=== PATIENT | female | born 1945 | race Two or more races ===

== ENCOUNTER 2018-01-24 10:09 | Outpatient (CLI) | payer OTHER | END 2018-01-24 11:10 | disposition home or self-care (01) | LOC: MAMO-SONO 10:09 | DX: Z12.31 Encounter for screening mammogram for malignant neoplasm of breast (principal); Z87.898 Personal history of other specified conditions; R92.0 Mammographic microcalcification found on diagnostic imaging of breast ==

== ENCOUNTER 2018-01-30 09:43 | Outpatient (CLI) | payer OTHER | END 2018-01-30 09:55 | disposition home or self-care (01) | LOC: RAD 501 09:43 | DX: D49.2 Neoplasm of unspecified behavior of bone, soft tissue, and skin (principal) ==

== ENCOUNTER → 2018-04-10 | Outpatient (CLI) | payer OTHER | END | disposition home or self-care (01) | LOC: RAD 501 11:17 | DX: D49.2 Neoplasm of unspecified behavior of bone, soft tissue, and skin (principal) ==

== ENCOUNTER 2018-04-18 09:39 | Outpatient (CLI) | payer OTHER | END 2018-04-18 09:53 | disposition home or self-care (01) | LOC: NUCLEAR 09:39 | DX: M81.0 Age-related osteoporosis without current pathological fracture (principal) ==

== ENCOUNTER 2018-05-20 11:34 | Outpatient (CLI) | payer OTHER | END 2018-05-20 15:00 | disposition home or self-care (01) | LOC: LAB 11:34 | DX: E56.1 Deficiency of vitamin K (principal) ==

== ENCOUNTER 2018-08-28 10:02 | Outpatient (CLI) | payer OTHER | END 2018-08-28 10:18 | disposition home or self-care (01) | LOC: MRI 10:02 | DX: D49.2 Neoplasm of unspecified behavior of bone, soft tissue, and skin (principal) | CPT/HCPCS: 73721 ==

== ENCOUNTER 2018-11-06 12:32 | Outpatient (CLI) | payer OTHER | END 2018-11-06 16:54 | disposition home or self-care (01) | LOC: RAD 12:32 | DX: M25.551 Pain in right hip (principal); M25.561 Pain in right knee ==

== ENCOUNTER → 2018-11-20 10:28 | Outpatient (CLI) | payer OTHER | END | disposition home or self-care (01) | LOC: LAB 10:28 | DX: R31.0 Gross hematuria (principal); R31.9 Hematuria, unspecified ==

== ENCOUNTER → 2018-11-25 | Outpatient (CLI) | payer OTHER | END | disposition home or self-care (01) | LOC: TOM 09:21 | DX: R31.0 Gross hematuria (principal) | CPT/HCPCS: 74177; Q9965 ==

== ENCOUNTER 2019-01-27 10:24 | Outpatient (CLI) | payer OTHER | END 2019-01-27 10:29 | disposition home or self-care (01) | LOC: RAD 10:24 | DX: D49.2 Neoplasm of unspecified behavior of bone, soft tissue, and skin (principal) ==

== ENCOUNTER 2019-02-28 10:02 | Outpatient (CLI) | payer OTHER | END 2019-02-28 10:04 | disposition home or self-care (01) | LOC: MRI 10:02 | DX: M25.551 Pain in right hip (principal) | CPT/HCPCS: 73718 ==

== ENCOUNTER 2019-04-15 08:56 | Outpatient (CLI) | payer OTHER | END 2019-04-15 09:03 | disposition home or self-care (01) | LOC: LAB 08:56 | DX: E55.9 Vitamin D deficiency, unspecified (principal); M85.88 Other specified disorders of bone density and structure, other site; M81.8 Other osteoporosis without current pathological fracture; E56.1 Deficiency of vitamin K; E88.89 Other specified metabolic disorders ==

== ENCOUNTER 2019-04-16 10:17 | Outpatient (CLI) | payer OTHER | END 2019-04-16 10:25 | disposition home or self-care (01) | LOC: NUCLEAR 10:17 | DX: M81.0 Age-related osteoporosis without current pathological fracture (principal) ==

== ENCOUNTER 2019-05-01 11:57 | Outpatient (CLI) | payer OTHER | END 2019-05-01 11:58 | disposition home or self-care (01) | LOC: LAB 11:57 | DX: R31.0 Gross hematuria (principal) ==

== ENCOUNTER → 2019-05-01 | Outpatient (CLI) | payer OTHER | END | disposition home or self-care (01) | LOC: SONOGRAMA 12:30 | DX: R31.0 Gross hematuria (principal) ==

== ENCOUNTER 2019-05-12 12:21 | Outpatient (CLI) | payer OTHER | END 2019-05-12 12:26 | disposition home or self-care (01) | LOC: LAB 12:21 | DX: R31.0 Gross hematuria (principal) ==

== ENCOUNTER 2019-05-12 12:47 | Outpatient (CLI) | payer OTHER | END 2019-05-12 14:53 | disposition home or self-care (01) | LOC: MRI 12:47 | DX: M54.5 Low back pain (principal) | CPT/HCPCS: 72148 ==

== ENCOUNTER 2019-05-26 12:44 | Outpatient (CLI) | payer OTHER | END 2019-05-26 15:09 | disposition home or self-care (01) | LOC: RAD 12:44 | DX: D49.2 Neoplasm of unspecified behavior of bone, soft tissue, and skin (principal); M25.551 Pain in right hip ==

== ENCOUNTER 2019-07-23 12:59 | Outpatient (CLI) | payer OTHER | END 2019-07-23 13:04 | disposition home or self-care (01) | LOC: LAB 12:59 | DX: E56.1 Deficiency of vitamin K (principal) ==

== ENCOUNTER 2019-12-03 14:46 | Outpatient (CLI) | payer OTHER | END 2019-12-03 14:54 | disposition home or self-care (01) | LOC: RAD 14:46 | PROVIDERS: ATTEND Orthopaedic Surgery | DX: M54.5 Low back pain (principal) ==

== ENCOUNTER 2020-04-14 11:19 | Outpatient (CLI) | payer OTHER | END 2020-04-14 11:31 | disposition home or self-care (01) | LOC: NUCLEAR 11:19 | PROVIDERS: ATTEND Orthopaedic Surgery | DX: M81.0 Age-related osteoporosis without current pathological fracture (principal) ==

== ENCOUNTER → 2020-04-28 10:37 | Outpatient (CLI) | payer OTHER | END | disposition home or self-care (01) | LOC: LAB 10:37 | PROVIDERS: ATTEND Orthopaedic Surgery | DX: E56.1 Deficiency of vitamin K (principal); M85.88 Other specified disorders of bone density and structure, other site; E21.2 Other hyperparathyroidism; E55.9 Vitamin D deficiency, unspecified; E88.89 Other specified metabolic disorders; M81.8 Other osteoporosis without current pathological fracture ==

== ENCOUNTER 2021-10-26 16:17 | Outpatient (CLI) | payer OTHER | END 2021-10-26 16:22 | disposition home or self-care (01) | LOC: LAB 16:17 | PROVIDERS: ATTEND Orthopaedic Surgery | DX: E55.9 Vitamin D deficiency, unspecified (principal); M85.9 Disorder of bone density and structure, unspecified; E56.1 Deficiency of vitamin K; E21.3 Hyperparathyroidism, unspecified; E88.9 Metabolic disorder, unspecified; M81.8 Other osteoporosis without current pathological fracture ==

== ENCOUNTER 2022-08-28 11:31 | Outpatient (CLI) | payer OTHER | END 2022-08-28 11:38 | disposition home or self-care (01) | LOC: RAD 11:31 | PROVIDERS: ATTEND Orthopaedic Surgery | DX: M25.551 Pain in right hip (principal) ==

== ENCOUNTER 2022-10-13 09:15 | Outpatient (CLI) | payer OTHER | END 2022-10-13 09:23 | disposition home or self-care (01) | LOC: TOM 09:15 | PROVIDERS: ATTEND Internal Medicine | DX: R05.3 Chronic cough (principal) | CPT/HCPCS: 71260; Q9965 ==

== ENCOUNTER 2022-12-01 09:56 | Outpatient (CLI) | payer OTHER | END 2022-12-01 09:57 | disposition home or self-care (01) | LOC: LAB 09:56 | PROVIDERS: ATTEND Orthopaedic Surgery | DX: E55.9 Vitamin D deficiency, unspecified (principal); M85.9 Disorder of bone density and structure, unspecified; E56.1 Deficiency of vitamin K; E21.3 Hyperparathyroidism, unspecified; M81.8 Other osteoporosis without current pathological fracture; E88.9 Metabolic disorder, unspecified ==

== ENCOUNTER 2023-05-23 11:42 | Outpatient (CLI) | payer OTHER | END 2023-05-23 11:44 | disposition home or self-care (01) | LOC: NUCLEAR 11:42 | PROVIDERS: ATTEND Orthopaedic Surgery | DX: M85.9 Disorder of bone density and structure, unspecified (principal); M81.0 Age-related osteoporosis without current pathological fracture ==

== ENCOUNTER 2023-07-10 10:34 | Outpatient (CLI) | payer OTHER | END 2023-07-10 10:41 | disposition home or self-care (01) | LOC: TOM 10:34 | PROVIDERS: ATTEND Internal Medicine Pulmonary Disease | DX: R91.8 Other nonspecific abnormal finding of lung field (principal) ==

== ENCOUNTER 2023-12-28 11:22 | Outpatient (CLI) | payer OTHER ==
[2023-12-28 13:18] LABS: BILIRUBIN TOTAL 0.54 mg/dL (0.3-1.2); CALCIUM 8.8 mg/dL (8.5-10.1); CREATININE SERUM 0.7 mg/dL (0.55-1.02); GFR 80.93; MAGNESIUM 2.1 mg/dL (1.8-2.4); PHOSPHOROUS 2.8 mg/dL (2.5-4.9); POTASSIUM 4.18 mEq/L (3.5-5.1)
[2024-01-01 15:11] LABS: CALCIUM IONIZED 4.8 mg/dL (4.5-5.6)
[2024-01-08 11:12] LABS: VITAMIN K < 0.10 ng/mL (0.10-2.20)
== END 2023-12-28 11:23 | disposition home or self-care (01) ==
LOC: LAB 11:22
PROVIDERS: ATTEND Orthopaedic Surgery
DX: E55.9 Vitamin D deficiency, unspecified (principal); M85.9 Disorder of bone density and structure, unspecified; E56.1 Deficiency of vitamin K; E21.3 Hyperparathyroidism, unspecified; E88.89 Other specified metabolic disorders; M81.8 Other osteoporosis without current pathological fracture

== ENCOUNTER 2024-01-31 11:35 | Outpatient (CLI) | payer OTHER | END 2024-01-31 11:46 | disposition home or self-care (01) | LOC: RAD 11:35 | PROVIDERS: ATTEND Orthopaedic Surgery | DX: M25.552 Pain in left hip (principal) ==

== ENCOUNTER 2024-01-31 13:19 | Outpatient (CLI) | payer OTHER | END 2024-01-31 13:29 | disposition home or self-care (01) | LOC: MRI 13:19 | PROVIDERS: ATTEND Orthopaedic Surgery | DX: M25.552 Pain in left hip (principal) | CPT/HCPCS: 73721 ==

== ENCOUNTER 2024-05-26 11:37 | Outpatient (CLI) | payer OTHER | END 2024-05-26 11:38 | disposition home or self-care (01) | LOC: NUCLEAR 11:37 | PROVIDERS: ATTEND Orthopaedic Surgery | DX: M81.0 Age-related osteoporosis without current pathological fracture (principal) ==

== ENCOUNTER 2024-09-08 11:40 | Outpatient (CLI) | payer OTHER | END 2024-09-08 11:44 | disposition home or self-care (01) | LOC: TOM 11:40 | PROVIDERS: ATTEND Internal Medicine Pulmonary Disease | DX: R91.8 Other nonspecific abnormal finding of lung field (principal) ==

== ENCOUNTER 2024-10-27 08:51 | Outpatient (CLI) | payer OTHER | END 2024-10-27 08:59 | disposition home or self-care (01) | LOC: TOM 08:51 | PROVIDERS: ATTEND Internal Medicine | DX: R10.84 Generalized abdominal pain (principal); R19.8 Other specified symptoms and signs involving the digestive system and abdomen | CPT/HCPCS: 74178; Q9965 ==

== ENCOUNTER 2024-11-18 07:17 | Outpatient (CLI) | payer OTHER | END 2024-11-18 07:18 | disposition home or self-care (01) | LOC: NUCLEAR 07:17 | DX: I20.9 Angina pectoris, unspecified (principal) | CPT/HCPCS: 78452; 93017; A9500; J0153 ==